=== PATIENT | female | born 1995 | race Two or more races ===

== ENCOUNTER 2021-10-22 20:14 | Emergency (ER) | payer MEDICAID ==
[~2021-10-22] VITALS: Ht 160 cm; Wt 79.0 kg
[~2021-10-22 20:14] MED LIST: LEVO112T7 PO
[2021-10-22 22:32] VITALS: BP 108/68
== END 2021-10-22 22:33 | disposition home or self-care (01) ==
LOC: ER 20:14
DX: O26.891 Other specified pregnancy related conditions, first trimester (principal); O99.281 Endocrine, nutritional and metabolic diseases complicating pregnancy, first trimester; E03.9 Hypothyroidism, unspecified; E05.90 Thyrotoxicosis, unspecified without thyrotoxic crisis or storm; Z3A.01 Less than 8 weeks gestation of pregnancy
CPT/HCPCS: 99281